=== PATIENT | female | born 1965 | race Caucasian/White ===

== ENCOUNTER 2019-07-15 08:08 | Day surgery (SDC) | payer OTHER ==
[~2019-07-15] VITALS: Ht 167.6 cm; Wt 104.3 kg
[2019-07-15 08:46] VITALS: BP 147/79
[2019-07-15 14:28] VITALS: BP 122/78
== END 2019-07-15 11:40 | disposition home or self-care (01) ==
LOC: DS 08:08 → GI 11:00 → DS 11:40
DX: K21.0 Gastro-esophageal reflux disease with esophagitis (principal); K25.9 Gastric ulcer, unspecified as acute or chronic, without hemorrhage or perforation; E78.00 Pure hypercholesterolemia, unspecified; Z79.899 Other long term (current) drug therapy; Z90.49 Acquired absence of other specified parts of digestive tract
CPT/HCPCS: 43235; J1200; J1610; J2250; J2310; J3010; J3490